=== PATIENT | female | born 1955 | race Caucasian/White ===

== ENCOUNTER 2018-04-17 14:59 | Emergency (ER) | payer OTHER ==
[~2018-04-17] VITALS: Ht 157.5 cm; Wt 56.7 kg
[~2018-04-17 14:59] MED LIST: CIPRO500 MG PO; CURCUMIN1 GM PO; FISH OIL300 MG PO; LEVAQUIN750 MG PO; TESSALON PERLE100 M1 PO; TUSNEL LIQUID178 ML PO; VITAMIN D400 UNI2 PO
== END 2018-04-17 16:23 | disposition home or self-care (01) ==
LOC: ER 14:59
DX: S80.02XA Contusion of left knee, initial encounter (principal); S80.01XA Contusion of right knee, initial encounter; W18.39XA Other fall on same level, initial encounter; Y93.89 Activity, other specified; Y92.89 Other specified places as the place of occurrence of the external cause; Y99.8 Other external cause status

== ENCOUNTER 2018-11-22 15:39 | Emergency (ER) | payer OTHER ==
[~2018-11-22] VITALS: Ht 157.5 cm; Wt 57.2 kg
[2018-11-22] MEDS ORDERED: VASOTEC2.5 MG (15:57)
[2018-11-23] MEDS ORDERED: CIPRO500 MG (21:55)
[2018-11-23] MEDS ORDERED: TAMS0.4C (21:55)
== END 2018-11-22 20:11 | disposition home or self-care (01) ==
LOC: ER 15:39 → EDBD 15:47 → ER 20:11
DX: N20.9 Urinary calculus, unspecified (principal)

== ENCOUNTER 2018-11-23 21:33 | Emergency (ER) | payer OTHER ==
[~2018-11-23] VITALS: Ht 157.5 cm; Wt 57.2 kg
[~2018-11-23 21:33] MED LIST changes: +VASOTEC2.5 MG
[2018-11-23] MEDS ORDERED: TAMS0.4C (21:55)
[2018-11-23] MEDS ORDERED: CIPRO500 MG (21:55)
[2018-11-24] MEDS ORDERED: PERCOCET 5-3251 EACH PO (07:52)
[2018-11-24] MEDS ORDERED: ZOFRAN ODT4 MG SL (07:52)
[2018-11-24] MEDS ORDERED: TORADOL60 MG IM (07:52)
[2018-11-24] MEDS ORDERED: KETO10TA2 PO (07:52)
== END 2018-11-24 08:09 | disposition home or self-care (01) ==
LOC: ER 21:33 → EDBD 22:48 → ER 22:48
DX: N20.1 Calculus of ureter (principal); N39.0 Urinary tract infection, site not specified

== ENCOUNTER 2018-11-29 08:57 | Outpatient (CLI) | payer OTHER ==
[~2018-11-29 08:57] MED LIST changes: +CIPRO500 MG; +KETO10TA2 PO; +PERCOCET 5-3251 EACH PO; +TAMS0.4C; +TORADOL60 MG IM; +ZOFRAN ODT4 MG SL
== END 2018-11-29 09:13 | disposition home or self-care (01) ==
LOC: LAB 08:57
DX: N20.0 Calculus of kidney (principal)

== ENCOUNTER 2019-09-19 11:12 | Emergency (ER) | payer OTHER ==
[~2019-09-19] VITALS: Ht 157.5 cm; Wt 57.2 kg
[2019-09-19] MEDS ORDERED: NORVASC5 MG PO (11:33)
== END 2019-09-19 18:40 | disposition home or self-care (01) ==
LOC: ER 11:12
DX: K52.89 Other specified noninfective gastroenteritis and colitis (principal); K57.30 Diverticulosis of large intestine without perforation or abscess without bleeding; N20.0 Calculus of kidney

== ENCOUNTER 2019-12-15 15:43 | Emergency (ER) | payer OTHER ==
[~2019-12-15] VITALS: Ht 157.5 cm; Wt 56.7 kg
[~2019-12-15 15:43] MED LIST changes: +NORVASC5 MG PO
[2019-12-15] MEDS ORDERED: PANADOL (16:13)
[2019-12-15] MEDS ORDERED: ROBITUSSIN (16:15)
== END 2019-12-15 21:02 | disposition home or self-care (01) ==
LOC: ER 15:43
DX: J11.1 Influenza due to unidentified influenza virus with other respiratory manifestations (principal); R55 Syncope and collapse

== ENCOUNTER 2019-12-23 12:50 | Emergency (ER) | payer OTHER ==
[~2019-12-23] VITALS: Ht 157.5 cm; Wt 56.7 kg
[~2019-12-23 12:50] MED LIST changes: +PANADOL; +ROBITUSSIN
== END 2019-12-23 16:03 | disposition home or self-care (01) ==
LOC: ER 12:50
DX: B34.9 Viral infection, unspecified (principal); R53.81 Other malaise; R53.83 Other fatigue

== ENCOUNTER 2019-12-24 13:26 | Outpatient (CLI) | payer OTHER | END 2019-12-24 13:30 | disposition home or self-care (01) | LOC: MRI 13:26 | DX: R42 Dizziness and giddiness (principal); R51 Headache | CPT/HCPCS: 70551 ==

== ENCOUNTER 2022-10-24 20:51 | Emergency (ER) | payer OTHER ==
[~2022-10-24] VITALS: Ht 154.9 cm; Wt 63.5 kg
[2022-10-24] MEDS ORDERED: AVAPRO75 MG (21:31)
[2022-10-24] MEDS ORDERED: FLAGYL375 MG (21:32)
[2022-10-24] MEDS ORDERED: CIPRO100 MG (21:32)
== END 2022-10-25 04:39 | disposition home or self-care (01) ==
LOC: ER 20:51
DX: N20.0 Calculus of kidney (principal); K52.9 Noninfective gastroenteritis and colitis, unspecified; Z88.2 Allergy status to sulfonamides; Z20.822 Contact with and (suspected) exposure to COVID-19; K57.30 Diverticulosis of large intestine without perforation or abscess without bleeding

== ENCOUNTER → 2022-12-31 | Emergency (ER) | payer OTHER ==
[~2022-12-31] VITALS: Ht 157.5 cm; Wt 54.4 kg
[~2022-12-31] MED LIST changes: +AVAPRO75 MG; +CIPRO100 MG; +FLAGYL375 MG; +NAPROXEN500 MG PO; +TAMS0.4C PO
== END | disposition home or self-care (01) ==
LOC: ER 08:40
DX: N20.2 Calculus of kidney with calculus of ureter (principal); N13.30 Unspecified hydronephrosis; I10 Essential (primary) hypertension; Z88.2 Allergy status to sulfonamides

== ENCOUNTER 2023-01-18 06:15 | Day surgery (SDC) | payer OTHER | END 2023-01-18 10:00 | disposition home or self-care (01) | LOC: AMB-ENDOS 06:15 | PROVIDERS: ATTEND Colon & Rectal Surgery | DX: K57.32 Diverticulitis of large intestine without perforation or abscess without bleeding (principal); R19.5 Other fecal abnormalities; K64.8 Other hemorrhoids; K58.9 Irritable bowel syndrome, unspecified; Z88.2 Allergy status to sulfonamides; Z20.822 Contact with and (suspected) exposure to COVID-19 ==

== ENCOUNTER 2023-05-10 17:40 | Emergency (ER) | payer OTHER ==
[~2023-05-10] VITALS: Ht 157.5 cm; Wt 54.0 kg
[2023-05-10] MEDS ORDERED: PEPCID AC20 MG PO (23:19)
[2023-05-10] MEDS ORDERED: DUI500 PO (23:19)
[2023-05-10] MEDS ORDERED: INTESTINEX680 M1 PO (23:19)
== END 2023-05-10 23:25 | disposition home or self-care (01) ==
LOC: ER 17:40
DX: R55 Syncope and collapse (principal); Z88.2 Allergy status to sulfonamides; I73.89 Other specified peripheral vascular diseases; E78.00 Pure hypercholesterolemia, unspecified; I10 Essential (primary) hypertension; S01.82XA Laceration with foreign body of other part of head, initial encounter; W18.39XA Other fall on same level, initial encounter; Y93.89 Activity, other specified; Y92.012 Bathroom of single-family (private) house as the place of occurrence of the external cause

== ENCOUNTER 2023-05-18 10:40 | Emergency (ER) | payer OTHER ==
[~2023-05-18] VITALS: Ht 162.6 cm; Wt 61.2 kg
[~2023-05-18 10:40] MED LIST changes: +DUI500 PO; +INTESTINEX680 M1 PO; +PEPCID AC20 MG PO
== END 2023-05-18 11:11 | disposition home or self-care (01) ==
LOC: ER 10:40
DX: Z48.02 Encounter for removal of sutures (principal)

== ENCOUNTER 2023-10-23 11:37 | Emergency (ER) | payer OTHER ==
[~2023-10-23] VITALS: Ht 157.5 cm; Wt 55.3 kg
[2023-10-23 13:07] LABS: HEMATOCRIT 35.4 % (36.0-45.00); HEMOGLOBIN 11.7 g/dL (12.0-15.00); MEAN CELL VOLUME 85.5 fL (80.00-100.00); MEAN CORPUSCULAR HEMOGLOBIN 28.3 pg (27.00-32.0); MEAN CORPUSCULAR HGB CONC 33.2 g/dl (32.0-36.0); PLATELET COUNT 198 K/uL (150-450); RED BLOOD COUNT 4.15 M/uL (4.00-6.00); RED CELL DISTRIBUTION WIDTH 13.6 % (11.5-14.5)
[2023-10-23 13:36] LABS: CALCIUM 9.8 mg/dL (8.5-10.1); CREATININE SERUM 0.76 mg/dL (0.55-1.02); GFR 75.46; POTASSIUM 3.77 mEq/L (3.5-5.1)
[2023-10-23 14:25] LABS: PH,URINE 5.5 (5.0-8.0); URINE APPEARANCE Clear; URINE BILIRRUBIN Negative (NEGATIVE); URINE BLOOD Negative; URINE COLOR Yellow; URINE GLUCOSE Negative (NEGATIVE); URINE LEUKOCYTE Trace; URINE NITRATE Negative; URINE PROTEIN Negative (NEGATIVE); URINE UROBILINOGEN 0.2 E.U./dl
[2023-10-23 14:29] LABS: URINE BACTERIA 27.7 uL (0.0-1933); URINE EPITHELIAL CELLS 6.3 uL (0.0-38.8); URINE RBC 3.4 uL (0.0-20.8); URINE WBC 13.7 uL (0.0-23.2)
== END 2023-10-23 17:51 | disposition home or self-care (01) ==
LOC: ER 11:38
PROVIDERS: Emergency Medicine
DX: K57.30 Diverticulosis of large intestine without perforation or abscess without bleeding (principal); K52.9 Noninfective gastroenteritis and colitis, unspecified; Z88.2 Allergy status to sulfonamides

== ENCOUNTER 2024-02-17 13:04 | Emergency (ER) | payer OTHER ==
[~2024-02-17] VITALS: Ht 162.6 cm; Wt 55.3 kg
== END 2024-02-17 14:20 | disposition home or self-care (01) ==
LOC: ER 13:05
DX: J06.9 Acute upper respiratory infection, unspecified (principal); L01.00 Impetigo, unspecified; R05.9 Cough, unspecified; Z88.2 Allergy status to sulfonamides

== ENCOUNTER 2025-11-11 20:16 | Emergency (ER) | payer OTHER ==
[~2025-11-11] VITALS: Ht 157.5 cm; Wt 55.8 kg
[2025-11-11] MEDS ORDERED: DICYCLOMINE HCL 20 MG TABLET PO STA (20:59)
[2025-11-11] MEDS ORDERED: 0.9 % SODIUM CHLORIDE 1,000 ML IV STA (20:59)
[2025-11-11] MEDS ORDERED: FAMOTIDINE/PF 20 MG/2 ML VIAL IV STA (20:59)
[2025-11-11] MEDS ORDERED: FAMOTIDINE/PF 20 MG/2 ML VIAL ONE (21:36)
[2025-11-11] MEDS ORDERED: DICYCLOMINE HCL 10 MG CAPSULE PO ONE (21:36)
[2025-11-11 22:10] LABS: BASO % 0.0 % (0.1-1.2); EOS # 0.00 (0.04-0.54); EOS % 0.0 % (0.7-7.0); LYMPH # 0.79 (1.18-3.74); LYMPH % 20.6 % (19.3-53.1); MEAN PLATELET VOLUME 9.80 fl (9.4-12.4); MONO # 0.40 (0.24-0.82); MONO % 10.4 % (4.7-12.5); NEUT # 2.64 (1.56-6.13); NEUT % 68.7 % (34.0-71.1); RED CELL DISTRIBUTION WIDTH 13.6 % (11.6-14.4)
[2025-11-11 22:48] LABS: BUN CREA RATIO 32.0 (7.0-25.0); CREATININE SERUM 1.14 mg/dL (0.55-1.02); GFR 46.98; GLUCOSE FASTING 129.0 mg/dL (65-100); OSMOLALITY SERUM 288.0 MOSM/KG (275-295); PHOSPHOKINASE CREATININE 253.0 U/L (26-192); TSH 0.667 uIU/mL (0.358-3.74)
[2025-11-11 22:52] LABS: COVID-19 AG NEGATIVE (NEGATIVE)
[2025-11-12 01:07] LABS: URINE APPEARANCE Clear; URINE BILIRRUBIN Negative (NEGATIVE); URINE BLOOD Negative; URINE COLOR Yellow; URINE GLUCOSE Negative (NEGATIVE); URINE KETONE 15 (NEGATIVE); URINE LEUKOCYTE Small; URINE NITRATE Negative; URINE PROTEIN 30 (NEGATIVE); URINE UROBILINOGEN 0.2 E.U./dl
[2025-11-12 01:10] LABS: URINE BACTERIA 152.1 uL (0.0-1933); URINE CAST 11.19 uL (0.0-1.40); URINE EPITHELIAL CELLS 19.9 uL (0.0-38.8); URINE WBC 53.4 uL (0.0-23.2)
[2025-11-12 01:26] LABS: URINE RBC 1.6 uL (0.0-20.8)
[2025-11-12] MEDS ORDERED: OSELTAMIVIR PHOSPHATE 75 MG CAPSULE PO ONE (05:22)
[2025-11-12] MEDS ORDERED: OSEL75CA PO (05:22)
[2025-11-12] MEDS ORDERED: ZYNCOF 20-400120 ML PO (05:22)
[2025-11-12] MEDS ORDERED: OSELTAMIVIR PHOSPHATE 75 MG CAPSULE PO STA (05:24)
== END 2025-11-12 05:36 ==
LOC: ER 20:16
PROVIDERS: General Practice
DX: J10.1 Influenza due to other identified influenza virus with other respiratory manifestations (principal); R55 Syncope and collapse; R10.9 Unspecified abdominal pain; R42 Dizziness and giddiness; I10 Essential (primary) hypertension; Z88.2 Allergy status to sulfonamides; Z20.822 Contact with and (suspected) exposure to COVID-19
CPT/HCPCS: 36415; 70450; 71045; 74177; 93005; 96365; 96366; 99284; J3490; J7030; Q9965

== ENCOUNTER 2025-11-18 10:18 | Emergency (ER) | payer OTHER ==
[~2025-11-18] VITALS: Ht 157.5 cm; Wt 55.8 kg
[~2025-11-18 10:18] MED LIST changes: +OSEL75CA PO; +ZYNCOF 20-400120 ML PO
[2025-11-18] MEDS ORDERED: ONDANSETRON HCL 2 MG/ML VIAL IV ONE (11:30)
[2025-11-18] MEDS ORDERED: DEXAMETHASONE SODIUM PHOSPHATE 4 MG/ML VIAL IV ONE (11:30)
[2025-11-18] MEDS ORDERED: DIPHENHYDRAMINE HCL 50 MG/ML VIAL 1ML IV ONE (11:30)
[2025-11-18 14:37] LABS: BASO % 0.5 % (0.1-1.2); EOS # 0.06 (0.04-0.54); EOS % 1.0 % (0.7-7.0); LYMPH # 2.15 (1.18-3.74); LYMPH % 36.8 % (19.3-53.1); MEAN PLATELET VOLUME 10.00 fl (9.4-12.4); MONO # 0.47 (0.24-0.82); MONO % 8.0 % (4.7-12.5); NEUT # 3.11 (1.56-6.13); NEUT % 53.4 % (34.0-71.1); RED CELL DISTRIBUTION WIDTH 13.4 % (11.6-14.4)
[2025-11-18 14:51] LABS: ERYTHROCYTE SEDIMENTATION RATE 59 mm/hr (0-30)
[2025-11-18 14:58] LABS: INR 0.99
[2025-11-18 15:13] LABS: URINE APPEARANCE Clear; URINE BILIRRUBIN Negative (NEGATIVE); URINE BLOOD Negative; URINE COLOR Yellow; URINE GLUCOSE Negative (NEGATIVE); URINE KETONE Trace (NEGATIVE); URINE LEUKOCYTE Small; URINE NITRATE Negative; URINE PROTEIN Trace (NEGATIVE); URINE UROBILINOGEN 0.2 E.U./dl
[2025-11-18 15:16] LABS: COVID-19 AG NEGATIVE (NEGATIVE)
[2025-11-18 15:17] LABS: URINE BACTERIA 42.3 uL (0.0-1933); URINE CAST 0.28 uL (0.0-1.40); URINE EPITHELIAL CELLS 4.7 uL (0.0-38.8); URINE RBC 1.9 uL (0.0-20.8); URINE WBC 12.6 uL (0.0-23.2)
[2025-11-18 16:23] LABS: ALT/SGPT 22 U/L (12-78); AST/SGOT 21 U/L (15-37); BILIRUBIN TOTAL 0.55 mg/dL (0.3-1.2); BILIRUBIN,CONJUGATED 0.18 mg/dL (0.0-0.2); BUN CREA RATIO 23 (7.0-25.0); CREATININE SERUM 0.73 mg/dL (0.55-1.02); GFR 78.59; GLUCOSE FASTING 81 mg/dL (65-100); OSMOLALITY SERUM 287 MOSM/KG (275-295)
[2025-11-18] MEDS ORDERED: FAMOTIDINE40 MG PO (16:53)
[2025-11-18] MEDS ORDERED: FLONASE ALLERG9.9 ML NASAL (16:57)
== END 2025-11-18 21:28 | disposition home or self-care (01) ==
LOC: ER 10:19
PROVIDERS: General Practice
DX: J01.80 Other acute sinusitis (principal); I86.8 Varicose veins of other specified sites; I87.2 Venous insufficiency (chronic) (peripheral); I10 Essential (primary) hypertension; Z20.822 Contact with and (suspected) exposure to COVID-19; Z88.2 Allergy status to sulfonamides
CPT/HCPCS: 36415; 93971; 99283; J1100; J1200; J2405